=== PATIENT | male | born 1960 | race Caucasian/White ===

== ENCOUNTER 2016-09-17 20:11 | Emergency (ER) | payer OTHER ==
[2016-09-17 22:16] LABS: BASOPHIL 0.5 % (0-2); EOSINOPHIL 4.2 % (0-5); HGB 15.2 g/dl (13.2-18.0); LYMPHOCYTE 20.6 % (15-48); MCH 32.3 pg (25.0-31.0); MCHC 33.8 g/dL (32.0-36.0); MCV 95.7 fL (78.0-100.0); MONOCYTE 10.9 % (0-12); MPV 9.4 fL (6.0-9.5); NEUTROPHIL 63.8 % (41-80); PLT 291 K/uL (150-400); RDW 13.4 % (11.5-14.0); WBC 12.6 K/uL (4.0-10.5)
[2016-09-17 22:35] LABS: CREATININE 0.9 mg/dL (0.7-1.2); POTASSIUM 4.6 mmol/L (3.5-5.1)
[2016-09-17 23:58] LABS: AMPHETAMINES POSITIVE (NEGATIVE); BARBITURATES NEGATIVE (NEGATIVE); BENZODIAZEPINES NEGATIVE (NEGATIVE); COCAINE NEGATIVE (NEGATIVE); MARIJUANA (THC) POSITIVE (NEGATIVE); METHADONE NEGATIVE (NEGATIVE); TRICYCLIC ANTIDEPRESSANT POSITIVE (NEGATIVE)
== END 2016-09-18 00:48 | disposition home or self-care (01) ==
LOC: FER 20:11
PROVIDERS: Nurse Practitioner Family
DX: L03.114 Cellulitis of left upper limb (principal); L03.113 Cellulitis of right upper limb; L25.9 Unspecified contact dermatitis, unspecified cause; F17.210 Nicotine dependence, cigarettes, uncomplicated; Z88.6 Allergy status to analgesic agent; Z98.890 Other specified postprocedural states
CPT/HCPCS: 36415; 80048; 80305; 85025; J2930